=== PATIENT | male | born 1940 | race Caucasian/White ===

== ENCOUNTER → 2019-12-25 | Outpatient (CLI) | payer MEDICARE, OTHER ==
--- NOTE | 2019-12-25 14:53 | RAD ---
Study: CR KNEE STANDING BILAT AP, KNEE LEFT 3V Indication: Surgery follow-up. Comparison: 07/24/2016 Findings: Status post total left knee arthroplasty. The hardware is intact and without loosening. No periprosthetic fracture. Distal femoral diaphysis and proximal tibial diaphysis ghost tracks. Normally located patella. Scattered calcific atherosclerosis and a chronic focus of mineralization projecting within the proximal calf. The partially assessed right knee exhibits medial compartment joint space narrowing and chondrocalcinosis. Impression: 1. The total left knee arthroplasty construct is intact and without loosening. No periprosthetic fracture. 2. Medial compartment joint space narrowing of the partially assessed right knee. Electronically signed by: JUDITH FREITAS MD (12/25/2019 2:50 PM) [id number]
== END ==
LOC: DXRAD 13:36
PROVIDERS: ATTEND Orthopaedic Surgery
DX: M11.261 Other chondrocalcinosis, right knee (principal); I70.8 Atherosclerosis of other arteries; Z98.890 Other specified postprocedural states
CPT/HCPCS: 73562; 73565

== ENCOUNTER → 2020-01-29 | Outpatient (CLI) | payer MEDICARE, OTHER ==
--- NOTE | 2020-01-29 14:52 | RAD ---
EXAM: Bilateral knees, standing view; left knee, 2 views. HISTORY: Pain. COMPARISON: 12/25/2019 FINDINGS: A standing frontal view both knees and 2 views of the left knee are obtained. There is a left knee arthroplasty in expected position. There is severe medial compartment joint space narrowing involving the right knee. There is right knee chondrocalcinosis. There is mild left genu varus. There is a moderate left knee effusion. IMPRESSION: 1. Left knee arthroplasty in expected position. There is a moderate left knee effusion and slight left genu varus. 2. Severe medial compartment osteoarthritis of the right knee and right knee chondrocalcinosis. Electronically signed by: Elham Morrissey MD (01/29/2020 2:49 PM) [facility]
== END | disposition home or self-care (01) ==
LOC: DXRAD 13:29
PROVIDERS: ATTEND Orthopaedic Surgery
DX: M17.11 Unilateral primary osteoarthritis, right knee (principal); M25.462 Effusion, left knee; M11.261 Other chondrocalcinosis, right knee; Z96.652 Presence of left artificial knee joint
CPT/HCPCS: 73560; 73565

== ENCOUNTER → 2020-06-01 | Outpatient (CLI) | payer MEDICARE, OTHER ==
--- NOTE | 2020-06-01 20:59 | RAD ---
Exam: Lumbar spine 2 views INDICATION: Lower back pain TECHNIQUE: Frontal and lateral views of the lumbar spine Comparisons: None FINDINGS: There is a mild levoconvex curvature lumbar spine. Vertebral body heights are well-maintained. Multilevel degenerative disc disease throughout the lumbar spine greatest at L4-L5 and L5-S1. Bilater al facet arthropathy noted throughout the lumbar spine. Visualized paraspinal soft tissues are unremarkable. 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 Electronically signed by: Jorje Snyder MD (06/01/2020 8:57 PM) [facility]
== END ==
LOC: PMG 15:03
PROVIDERS: ATTEND Family Medicine
DX: M51.37 Other intervertebral disc degeneration, lumbosacral region (principal); M47.816 Spondylosis without myelopathy or radiculopathy, lumbar region; M43.8X6 Other specified deforming dorsopathies, lumbar region
CPT/HCPCS: 72100